=== PATIENT | male | born 1950 | race Caucasian/White ===

== ENCOUNTER 2024-01-12 10:17 | Day surgery (SDC) | payer OTHER ==
[2024-01-12] MEDS: Ringers Lactate 1,000 ML IV ONE (10:40)
[2024-01-12 11:20] VITALS: O2SAT 100
[2024-01-12] MEDS ORDERED: LIDOCAINE 1% MPF 5 ML VIAL ONE (11:33)
[2024-01-12] MEDS ORDERED: propofoL 200 MG/20 ML VIAL IV ONE (11:33)
[2024-01-12] MEDS ORDERED: GLYCOPYRROLATE 0.2 MG/ML SYR ONE (12:37)
[2024-01-12 14:02] VITALS: BP 100/67; TEMP 97.1
== END 2024-01-12 13:20 ==
LOC: OR 10:17
PROVIDERS: ATTEND Surgery
PROC: 0DBL8ZX Excision of Transverse Colon, Via Natural or Artificial Opening Endoscopic, Diagnostic (ICD-10-PCS; 2024-01-12)
PROC: 0DBH8ZX Excision of Cecum, Via Natural or Artificial Opening Endoscopic, Diagnostic (ICD-10-PCS; 2024-01-12)
PROC: 0DBK8ZX Excision of Ascending Colon, Via Natural or Artificial Opening Endoscopic, Diagnostic (ICD-10-PCS; principal; 2024-01-12 12:00)
DX: C20 Malignant neoplasm of rectum (principal); K62.5 Hemorrhage of anus and rectum; K64.8 Other hemorrhoids; D12.2 Benign neoplasm of ascending colon; D12.0 Benign neoplasm of cecum; D12.3 Benign neoplasm of transverse colon
CPT/HCPCS: 88305; 45385; J2704; J2001; J7120